=== PATIENT | female | born 1965 | race African-American/Black ===

== ENCOUNTER 2017-09-06 00:51 | Emergency (ER) | payer MEDICAID ==
[~2017-09-06] VITALS: Ht 154.9 cm; Wt 89.4 kg
[2017-09-06 01:05] VITALS: BP 125/89
== END 2017-09-06 04:30 | disposition left against medical advice (07) ==
LOC: ER 00:51
DX: R51 Headache (principal); Z53.21 Procedure and treatment not carried out due to patient leaving prior to being seen by health care provider

== ENCOUNTER 2021-02-04 07:43 | Emergency (ER) | payer MEDICAID ==
[~2021-02-04] VITALS: Ht 154.9 cm; Wt 90.0 kg
[2021-02-04] MEDS ORDERED: ONDANSETRON HCL 4MG/2ML INJ IV STA (08:07)
[2021-02-04] MEDS ORDERED: SODIUM CHLORIDE 0.9% 1,000 ML IV ONE (08:15)
[2021-02-04 08:48] LABS: BASOPHILS % 0.7 % (0.0-2.0); EOSINOPHILS % 2.1 % (0.0-5.0); HEMATOCRIT. 45.9 % (36.0-48.0); HEMOGLOBIN. 15.6 g/dL (12.0-16.0); LYMPHOCYTES % 34.1 % (20.0-50.0); MEAN CORPUSCULAR HEMOGLOBIN 30.1 pg (28.0-32.0); MEAN CORPUSCULAR VOLUME 88.6 fL (81.0-99.0); MEAN PLATELET VOLUME 9.2 fl (7.4-10.4); MONOCYTES % 7.9 % (2.0-8.0); NEUTROPHILS % 55.2 % (40.0-76.0); PLATELET 181 x1000/uL (130-400); RED BLOOD CELL COUNT 5.18 mill/uL (4.2-5.4); RED CELL DISTRIBUTION WIDTH 14.3 % (11.6-14.6)
[2021-02-04 08:51] LABS: CHLORIDE 111 mEq/L (98-107)
[2021-02-04] MEDS ORDERED: ONDA4TAB5 PO (10:11)
[2021-02-04 10:18] VITALS: BP 142/85
[2021-02-04 10:48] LABS: PLATELET ESTIMATE NORMAL
== END 2021-02-04 10:31 | disposition home or self-care (01) ==
LOC: ER 07:43
DX: R42 Dizziness and giddiness (principal); R03.0 Elevated blood-pressure reading, without diagnosis of hypertension; J45.909 Unspecified asthma, uncomplicated; F17.210 Nicotine dependence, cigarettes, uncomplicated; Z71.6 Tobacco abuse counseling; F12.90 Cannabis use, unspecified, uncomplicated; Z88.0 Allergy status to penicillin; Z88.2 Allergy status to sulfonamides
CPT/HCPCS: 36415; 70450; 71045; 80053; 83880; 84484; 85025; 93005; 96361; 96374; 99285; 99406; J2405; J7030